=== PATIENT | female | born 1975 | race Two or more races ===

== ENCOUNTER 2021-12-21 09:55 | Inpatient (IN) | payer MEDICAID ==
[~2021-12-21] VITALS: Ht 154.9 cm; Wt 66.3 kg
[2021-12-21 10:18] LABS: Basophils # (auto) 0.1 10 ^3/uL (0-0.2); Basophils % (auto) 1.4 % (0.0-2.0); Eosinophils # (auto) 0.1 10 ^3/uL (0-0.8); Eosinophils % (auto) 2.1 % (0.0-7.0); Hematocrit 40.5 % (36.0-46.0); Hemoglobin 13.5 g/dL (12.2-16.2); Lymphocytes # (auto) 1.8 10 ^3/uL (0.4-5.4); Lymphocytes % (auto) 35.2 % (10.0-50.0); Mean Corpuscular Hemoglobin 28.8 pg (28.0-32.0); Mean Corpuscular Hgb Conc. 33.4 g/dL (32.0-36.0); Mean Corpuscular Volume 86.3 fL (80.0-100.0); Monocytes # (auto) 0.5 10 ^3/uL (0-1.3); Monocytes % (auto) 10.7 % (0.0-12.0); Neutrophils # (auto) 2.6 10 ^3/uL (1.6-8.6); Neutrophils % (auto) 50.6 % (37.0-80.0); Nucleated Red Blood Cells % 0.1 %; Red Cell Distribution Width 13.3 % (11.8-14.3); White Blood Cell 5.1 10^3/uL (4.4-10.8)
[2021-12-21 11:24] LABS: Urine Bacteria FEW /hpf (None Seen); Urine Blood Negative /uL (Negative); Urine Mucus FEW (None Seen); Urine Specific Gravity 1.022 (1.001-1.035); Urine WBC 1 /hpf (0 - 5)
[2021-12-21] MEDS ORDERED: ONDANSETRON HCL 4 MG/2 ML VIAL IV ONE (12:00)
[2021-12-21] MEDS ORDERED: MORPHINE SULFATE 4 MG/ML SYR/VIAL IV ONE (12:00)
[2021-12-21] MEDS ORDERED: fentaNYL CITRATE 100 MCG/2 ML VL IV ONE ×2 (12:00→18:30)
[2021-12-21 12:02] LABS: Albumin 3.7 g/dL (3.4-5.0); BUN/Creatinine Ratio 14.1; Calcium 8.7 mg/dL (8.5-10.1); Potassium 4.1 mmol/L (3.5-5.1)
[2021-12-21 12:05] LABS: Bilirubin, Total 0.4 mg/dL (0.2-1.0); Total Protein 7.5 g/dL (6.4-8.2)
[2021-12-21] MEDS ORDERED: HYDROmorphone HCL 2 MG/ML VL IV ONE (16:30)
[2021-12-21] MEDS ORDERED: ACETAMINOPHEN 325 MG TAB PO ONE (21:15)
[2021-12-21] MEDS ORDERED: ONDANSETRON HCL 4 MG/2 ML VIAL IV PRN (21:15)
[2021-12-21] MEDS ORDERED: DOCUSATE SOD 100 MG CAP PO PRN (21:15)
[2021-12-21 22:30] VITALS: BP 109/68
[2021-12-21] MEDS: HYDROmorphone HCL 2 MG/ML VL IV PRN (22:47)
[2021-12-21 23:00] VITALS: BP 109/68
[2021-12-22] MEDS ORDERED: ACET120S38 PR (03:56)
[2021-12-22] MEDS: HYDROcodone-ACET 5/325MG TAB PO PRN ×2 (04:37→09:00)
[2021-12-22 05:25] VITALS: BP 97/56
[2021-12-22 05:57] LABS: Basophils # (auto) 0.1 10 ^3/uL (0-0.2); Eosinophils # (auto) 0.1 10 ^3/uL (0-0.8); Eosinophils % (auto) 2.1 % (0.0-7.0); Hematocrit 37.5 % (36.0-46.0); Hemoglobin 12.7 g/dL (12.2-16.2); Lymphocytes # (auto) 2.3 10 ^3/uL (0.4-5.4); Mean Corpuscular Hemoglobin 29.1 pg (28.0-32.0); Mean Corpuscular Volume 85.5 fL (80.0-100.0); Monocytes # (auto) 0.7 10 ^3/uL (0-1.3); Monocytes % (auto) 10.5 % (0.0-12.0); Neutrophils # (auto) 3.1 10 ^3/uL (1.6-8.6); Neutrophils % (auto) 49.4 % (37.0-80.0); Red Blood Cells 4.38 10^6/uL (4.0-5.20); Red Cell Distribution Width 13.4 % (11.8-14.3); White Blood Cell 6.3 10^3/uL (4.4-10.8)
[2021-12-22] MEDS ORDERED: INFLUENZA VIRUS VACCINE IM SCH (06:15)
[2021-12-22] MEDS ORDERED: PNEUMOCOCCAL VACC POLYS 25 MCG/0.5 ML VIAL IM SCH (06:15)
[2021-12-22 06:21] LABS: Potassium 3.8 mmol/L (3.5-5.1)
[2021-12-22 06:25] LABS: Albumin 3.5 g/dL (3.4-5.0); BUN/Creatinine Ratio 19.7; Calcium 8.7 mg/dL (8.5-10.1)
[2021-12-22 06:29] LABS: Bilirubin, Total 0.4 mg/dL (0.2-1.0)
[2021-12-22] MEDS: ENOXAPARIN SOD 40 MG/0.4 ML SYRINGE SC SCH (09:00)
[2021-12-22 09:26] VITALS: BP 104/58
[2021-12-22] MEDS ORDERED: TOLTERODINE TARTRATE 1 MG TAB PO ONE (12:45)
[2021-12-22 12:52] VITALS: BP 97/67
[2021-12-22] MEDS: KETOROLAC TROMETH 30 MG/ML 1ML VIAL IV PRN (13:08)
[2021-12-22 16:41] VITALS: BP 95/57
[2021-12-22] MEDS: HYDROmorphone HCL 2 MG/ML VL IV PRN (20:13)
[2021-12-22 22:00] VITALS: BP 92/56
[2021-12-23 05:00] VITALS: BP 104/62
[2021-12-23 09:19] VITALS: BP 101/60
[2021-12-23] MEDS: ENOXAPARIN SOD 40 MG/0.4 ML SYRINGE SC SCH (09:58)
[2021-12-23 13:00] VITALS: BP 143/53
[2021-12-23] MEDS: KETOROLAC TROMETH 30 MG/ML 1ML VIAL IV PRN (15:32)
[2021-12-23 17:00] VITALS: BP 109/71
[2021-12-23] MEDS ORDERED: MILK OF MAGNESIA 30ML SUSP PO ONE (17:45)
[2021-12-23] MEDS: SUCRALFATE 1 GM/10 ML ORAL SUSP PO SCH (21:42)
[2021-12-23 22:00] VITALS: BP 109/65
[2021-12-24 05:00] VITALS: BP 102/55
[2021-12-24] MEDS: SUCRALFATE 1 GM/10 ML ORAL SUSP PO SCH ×2 (06:23→12:39)
[2021-12-24 08:00] VITALS: BP 108/64
[2021-12-24] MEDS ORDERED: PANT40T PO (09:47)
[2021-12-24] MEDS ORDERED: SUCR1SUS10 PO (09:47)
[2021-12-24] MEDS ORDERED: PANTOPRAZOLE 40 MG TAB PO SCH (10:00)
[2021-12-24] MEDS: ENOXAPARIN SOD 40 MG/0.4 ML SYRINGE SC SCH (10:06)
[2021-12-24 11:19] VITALS: BP 108/64
[2021-12-24 12:00] VITALS: BP 103/61
== END 2021-12-24 15:15 | disposition home or self-care (01) | DRG 241 ==
LOC: ER 09:55 → OVERFLOW 21:14 → OBSVTOIN 21:14 → CENTRAL 23:34
PROVIDERS: ADMIT Internal Medicine; ATTEND Internal Medicine
DX: K29.70 Gastritis, unspecified, without bleeding (principal); M19.90 Unspecified osteoarthritis, unspecified site; N39.3 Stress incontinence (female) (male); Z98.51 Tubal ligation status; Z20.822 Contact with and (suspected) exposure to COVID-19
CPT/HCPCS: 36415; 74176; 76856; 80053; 81001; 83690; 84702; 85025; 96374; 96375; 96376; G0378; J1885; J2405

== ENCOUNTER 2022-12-25 08:34 | Emergency (ER) | payer MEDICAID ==
[~2022-12-25] VITALS: Ht 152.4 cm; Wt 68.1 kg
[~2022-12-25 08:34] MED LIST: ACET120S38 PR; PANT40T PO; SUCR1SUS10 PO
[2022-12-25 09:12] VITALS: BP 102/72
[2022-12-25] MEDS ORDERED: KETOROLAC TROMETH 60MG/2ML VIAL IM ONE (09:30)
[2022-12-25] MEDS ORDERED: IBUP800T27 PO (09:33)
[2022-12-25] MEDS ORDERED: METH750T22 PO (09:33)
== END 2022-12-25 09:39 | disposition home or self-care (01) ==
LOC: ER 08:34
DX: M75.31 Calcific tendinitis of right shoulder (principal); Z79.1 Long term (current) use of non-steroidal anti-inflammatories (NSAID); Z79.899 Other long term (current) drug therapy; Z88.6 Allergy status to analgesic agent
CPT/HCPCS: J1885